=== PATIENT | female | born 1985 | race Hispanic/Latino ===

== ENCOUNTER 2018-05-02 13:36 | Emergency (ER) | payer OTHER ==
[~2018-05-02] VITALS: Ht 167.6 cm; Wt 108.0 kg
[~2018-05-02 13:36] MED LIST: CREON DR 6,000 U1 EA PO; GLYBURIDE5 MG PO; INDOMETHACIN50 MG PO; LEXAPRO10 MG PO; LISINOPRIL2.5 MG PO; METFORMIN HCL500 MG PO
[2018-05-02 14:00] LABS: BASOPHILS % 0.4 % (0.0-1.0); EOSINOPHILS # (AUTO) 0.2 (0.0-0.4); EOSINOPHILS % 1.8 % (0.0-6.0); HEMATOCRIT 40.2 % (34.2-44.1); HEMOGLOBIN 14.4 g/dL (12.0-16.0); LYMPHOCYTES # (AUTO) 2.4 (1.0-3.2); LYMPHOCYTES % 25.5 % (18.0-39.1); MEAN CORPUSCULAR HEMOGLOBIN 30.5 pg (28-32); MEAN CORPUSCULAR HGB CONC 35.8 g/dL (31-35); MEAN CORPUSCULAR VOLUME 85.2 fL (81-99); MONOCYTES # (AUTO) 0.4 (0.2-0.8); MONOCYTES % 4.2 % (4.4-11.3); NEUTROPHILS # (AUTO) 6.3 (2.1-6.9); NEUTROPHILS % 67.8 % (38.7-80.0); PLATELET COUNT 250 x10e3/uL (140-360); RED BLOOD COUNT 4.72 x10e6/uL (3.6-5.1); RED CELL DISTRIBUTION WIDTH 11.7 % (11.7-14.4)
[2018-05-02 14:17] LABS: ALANINE AMINOTRANSFERASE 16 IU/L (0-55); ALBUMIN 3.7 g/dL (3.5-5.0); ALKALINE PHOSPHATASE 66 IU/L (40-150); ANION GAP 13.7 mmol/L (8-16); BLOOD UREA NITROGEN 11 mg/dL (7-26); BUN/CREATININE RATIO 13 (6-25); CALCIUM 9.1 mg/dL (8.4-10.2); CARBON DIOXIDE 19 mmol/L (22-29); CHLORIDE 104 mmol/L (98-107); CREATININE, SERUM 0.86 mg/dL (0.57-1.11); EST GLOMERULAR FILTRATION RATE > 60 ML/MIN (60-); GLUCOSE 384 mg/dL (74-118); POTASSIUM 3.7 mmol/L (3.5-5.1); SODIUM 133 mmol/L (136-145)
[2018-05-02 15:22] LABS: CLARITY,URINE SL CLOUDY (CLEAR); COLOR,URINE YELLOW (YELLOW); KETONES,URINE TRACE (NEGATIVE); LEUKOCYTE ESTERASE ,URINE NEGATIVE (NEGATIVE); NITRITE,URINE NEGATIVE (NEGATIVE); PROTEIN,URINE DIPSTICK NEGATIVE (NEGATIVE)
[2018-05-02 15:23] LABS: BILIRUBIN,URINE NEGATIVE (NEGATIVE); PREGNANCY TEST, URINE NEGATIVE (NEGATIVE); URINE UROBILINOGEN 0.2 mg/dL (0.2 - 1)
[2018-05-02 15:32] LABS: RBC,URINE >50 /HPF (0-5)
[2018-05-02 16:37] VITALS: BP 123/87
== END 2018-05-02 16:55 | disposition home or self-care (01) ==
LOC: ER 13:36
DX: R10.30 Lower abdominal pain, unspecified (principal); R11.0 Nausea; R19.7 Diarrhea, unspecified; E11.9 Type 2 diabetes mellitus without complications; K58.9 Irritable bowel syndrome, unspecified; F32.9 Major depressive disorder, single episode, unspecified; Z87.19 Personal history of other diseases of the digestive system
CPT/HCPCS: 36415; 80053; 81001; 81025; 85025; 99284

== ENCOUNTER 2018-10-15 16:12 | Emergency (ER) | payer SELFPAY ==
[~2018-10-15] VITALS: Ht 167.6 cm; Wt 108.0 kg
--- OUTSIDE RECORDS SUMMARY | 2018-10-15 16:15 | XMS REPORT | Continuity of Care Document ---
Author Author [facility] Interface Address Unknown Phone Unavailable Problems Problem Status Onset Date Classification Date Reported Comments Source E11.9 DIABETES Active 09/11/2016 [facility] Diabetes Active Problem 05/02/2018 [facility] Medications Medication Details Route Status Patient Instructions Ordering Provider Order Date Source Amylas/Cellu/Lipas/Protea/Bile (Neptali Dr 6,000 Units Capsule) 1 Ea Cap Three Times Daily With Meals Active [facility] Escitalopram Oxalate (Lexapro) 10 Mg Tablet Daily Active [facility] Glyburide 5 Mg Tablet Daily Active [facility] Indomethacin 50 Mg Capsule As Needed Active [facility] Lisinopril 2.5 Mg Tablet Daily Active [facility] Metformin Hcl 500 Mg Tablet Twice A Day Active [facility] Allergies, Adverse Reactions, Alerts Substance Category Reaction Severity Reaction type Status Date Reported Comments Source Penicillin Allergy to Substance Active 09/15/2015 [facility] Immunizations Immunization Date Given Site Status Last Updated Comments Source Results Order Name Results Value Reference Range Date Interpretation Comments Source Automated urine sediment leukocyte count by microscopy (number/high power field) Automated urine sediment leukocyte count by microscopy (number/high power field) NONE 0 - 5 05/02/2018 [facility] Bacteria detection in urine sediment by light microscopy Bacteria detection in urine sediment by light microscopy NONE NONE 05/02/2018 [facility] Epithelial cells detection in urine sediment by light microscopy Epithelial cells detection in urine sediment by light microscopy NONE NONE 05/02/2018 [facility] Erythrocytes detection in urine sediment by light microscopy Erythrocytes detection in urine sediment by light microscopy null 0 - 5 05/02/2018 [facility] Specific gravity of Urine by Test strip Specific gravity of Urine by Test strip 1.015 1.010 - 1.025 05/02/2018 [facility] Urine clarity Urine clarity SL CLOUDY CLEAR 05/02/2018 [facility] Urine color determination Urine color determination YELLOW YELLOW 05/02/2018 [facility] Urine erythrocytes detection Urine erythrocytes detection 4+ NEGATIVE 05/02/2018 [facility] Urine glucose detection Urine glucose detection 3+ NEGATIVE 05/02/2018 [facility] Urine human chorionic gonadotropin (hCG) detection Urine human chorionic gonadotropin (hCG) detection NEGATIVE NEGATIVE 05/02/2018 [facility] Urine ketones detection by automated test strip Urine ketones detection by automated test strip TRACE NEGATIVE 05/02/2018 [facility] Urine leukocyte esterase detection by dipstick Urine leukocyte esterase detection by dipstick NEGATIVE NEGATIVE 05/02/2018 [facility] Urine nitrite detection Urine nitrite detection NEGATIVE NEGATIVE 05/02/2018 [facility] Urine pH measurement by automated test strip Urine pH measurement by automated test strip 5 5 - 7 05/02/2018 [facility] Urine protein measurement by test strip (mass/volume) Urine protein measurement by test strip (mass/volume) NEGATIVE NEGATIVE 05/02/2018 [facility] Urine total bilirubin measurement (mass/volume) Urine total bilirubin measurement (mass/volume) NEGATIVE NEGATIVE 05/02/2018 [facility] Urine urobilinogen measurement by test strip (mass/volume) Urine urobilinogen measurement by test strip (mass/volume) 0.2 0.2 - 1 05/02/2018 [facility] Automated blood basophil count (count/volume) Automated blood basophil count (count/volume) 0.0 0.0 - 0.1 05/02/2018 [facility] Automated blood basophil count as percentage of total leukocytes Automated blood basophil count as percentage of total leukocytes 0.4 0.0 - 1.0 05/02/2018 [facility] Automated blood eosinophil count Automated blood eosinophil count 0.2 0.0 - 0.4 05/02/2018 [facility] Automated blood eosinophil count as percentage of total leukocytes Automated blood eosinophil count as percentage of total leukocytes 1.8 0.0 - 6.0 05/02/2018 [facility] Automated blood hematocrit (volume fraction) Automated blood hematocrit (volume fraction) 40.2 34.2 - 44.1 05/02/2018 [facility] Automated blood lymphocyte count as percentage ot total leukocytes Automated blood lymphocyte count as percentage ot total leukocytes 25.5 18.0 - 39.1 05/02/2018 [facility] Automated blood monocyte count as percentage of total leukocytes Automated blood monocyte count as percentage of total leukocytes 4.2 4.4 - 11.3 05/02/2018 [facility] Automated blood neutrophil count Automated blood neutrophil count 6.3 2.1 - 6.9 05/02/2018 [facility] Automated blood platelet count (count/volume) Automated blood platelet count (count/volume) 250 140 - 360 05/02/2018 [facility] Automated blood segmented neutrophil count as percentage of total leukocytes Automated blood segmented neutrophil count as percentage of total leukocytes 67.8 38.7 - 80.0 05/02/2018 [facility] Automated erythrocyte mean corpuscular hemoglobin (mass per erythrocyte) Automated erythrocyte mean corpuscular hemoglobin (mass per erythrocyte) 30.5 28 - 32 05/02/2018 [facility] Automated erythrocyte mean corpuscular hemoglobin concentration measurement (mass/volume) Automated erythrocyte mean corpuscular hemoglobin concentration measurement (mass/volume) 35.8 31 - 35 05/02/2018 [facility] Automated erythrocyte mean corpuscular volume Automated erythrocyte mean corpuscular volume 85.2 81 - 99 05/02/2018 [facility] Blood erythrocytes automated count (number/volume) Blood erythrocytes automated count (number/volume) 4.72 3.6 - 5.1 05/02/2018 [facility] Blood hemoglobin measurement (moles/volume) Blood hemoglobin measurement (moles/volume) 14.4 12.0 - 16.0 05/02/2018 [facility] Blood leukocytes automated count (number/volume) Blood leukocytes automated count (number/volume) 9.34 4.8 - 10.8 05/02/2018 [facility] Blood lymphocytes count (number/volume) Blood lymphocytes count (number/volume) 2.4 1.0 - 3.2 05/02/2018 [facility] Blood monocytes automated count (number/volume) Blood monocytes automated count (number/volume) 0.4 0.2 - 0.8 05/02/2018 [facility] Estimated glomerular filtration rate (GFR) determination Estimated glomerular filtration rate (GFR) determination null 60 05/02/2018 [facility] Glucose measurement Glucose measurement 384 74 - 118 05/02/2018 [facility] Plasma globulin measurement (mass/volume) Plasma globulin measurement (mass/volume) 3.7 2.3 - 3.5 05/02/2018 [facility] Serum or plasma alanine aminotransferase measurement (enzymatic activity/volume) Serum or plasma alanine aminotransferase measurement (enzymatic activity/volume) 16 0 - 55 05/02/2018 [facility] Serum or plasma albumin measurement (mass/volume) Serum or plasma albumin measurement (mass/volume) 3.7 3.5 - 5.0 05/02/2018 [facility] Serum or plasma albumin/globulin mass ratio Serum or plasma albumin/globulin mass ratio 1.0 0.8 - 2.0 05/02/2018 [facility] Serum or plasma alkaline phosphatase measurement (enzymatic activity/volume) Serum or plasma alkaline phosphatase measurement (enzymatic activity/volume) 66 40 - 150 05/02/2018 [facility] Serum or plasma anion gap Serum or plasma anion gap 13.7 8 - 16 05/02/2018 [facility] Serum or plasma calcium measurement (mass/volume) Serum or plasma calcium measurement (mass/volume) 9.1 8.4 - 10.2 05/02/2018 [facility] Serum or plasma carbon dioxide, total measurement (moles/volume) Serum or plasma carbon dioxide, total measurement (moles/volume) 19 22 - 29 05/02/2018 [facility] Serum or plasma chloride measurement (moles/volume) Serum or plasma chloride measurement (moles/volume) 104 98 - 107 05/02/2018 [facility] Serum or plasma creatinine measurement (mass/volume) Serum or plasma creatinine measurement (mass/volume) 0.86 0.57 - 1.11 05/02/2018 [facility] Serum or plasma potassium measurement (moles/volume) Serum or plasma potassium measurement (moles/volume) 3.7 3.5 - 5.1 05/02/2018 [facility] Serum or plasma protein measurement (mass/volume) Serum or plasma protein measurement (mass/volume) 7.4 6.5 - 8.1 05/02/2018 [facility] Serum or plasma sodium measurement (moles/volume) Serum or plasma sodium measurement (moles/volume) 133 136 - 145 05/02/2018 [facility] Serum or plasma total bilirubin measurement (mass/volume) Serum or plasma total bilirubin measurement (mass/volume) 0.8 0.2 - 1.2 05/02/2018 [facility] Serum or plasma urea nitrogen measurement (mass/volume) Serum or plasma urea nitrogen measurement (mass/volume) 11 7 - 26 05/02/2018 [facility] Serum or plasma urea nitrogen/creatinine mass ratio Serum or plasma urea nitrogen/creatinine mass ratio 13 6 - 25 05/02/2018 [facility] Red Cell Distribution Width 11.7 11.7 - 14.4 05/02/2018 [facility] IM GRANULOCYTES % 0.3 0.0 - 1.0 05/02/2018 [facility] Absolute Immature Granulocyte (auto 0.03 0 - 0.1 05/02/2018 [facility] Aspartate Amino Transf (AST/SGOT) 13 5 - 34 05/02/2018 [facility] Vital Signs Vital Sign Value Date Comments Source Encounters Location Location Details Encounter Type Encounter Number Reason For Visit Attending Provider ADM Date DC Date Status Source [facility] Outpatient [id number] Zaid Eubanks 11/15/2016 11/16/2016 [facility] Departed Emergency Room [id number] NELSON HA MD 05/02/2018 05/02/2018 [facility] Procedures Procedure Code Date Perfomer Comments Source
[2018-10-15] MEDS ORDERED: SODIUM CHLORIDE 0.9% 1000ML 1,000 ML IV STA (16:17)
[2018-10-15 16:55] LABS: BASOPHILS % 0.3 % (0.0-1.0); EOSINOPHILS # (AUTO) 0.2 (0.0-0.4); EOSINOPHILS % 1.9 % (0.0-6.0); HEMATOCRIT 42.3 % (34.2-44.1); HEMOGLOBIN 14.4 g/dL (12.0-16.0); LYMPHOCYTES % 25.1 % (18.0-39.1); MEAN CORPUSCULAR HEMOGLOBIN 30.2 pg (28-32); MEAN CORPUSCULAR VOLUME 88.7 fL (81-99); MONOCYTES # (AUTO) 0.4 (0.2-0.8); MONOCYTES % 5.2 % (4.4-11.3); NEUTROPHILS # (AUTO) 5.3 (2.1-6.9); NEUTROPHILS % 67.1 % (38.7-80.0); PLATELET COUNT 262 x10e3/uL (140-360); RED BLOOD COUNT 4.77 x10e6/uL (3.6-5.1); RED CELL DISTRIBUTION WIDTH 11.9 % (11.7-14.4)
[2018-10-15 17:15] LABS: ALANINE AMINOTRANSFERASE 19 IU/L (0-55); ALBUMIN 3.6 g/dL (3.5-5.0); ALKALINE PHOSPHATASE 81 IU/L (40-150); ANION GAP 14.7 mmol/L (8-16); BLOOD UREA NITROGEN 13 mg/dL (7-26); BUN/CREATININE RATIO 15 (6-25); CALCIUM 9.4 mg/dL (8.4-10.2); CARBON DIOXIDE 20 mmol/L (22-29); CHLORIDE 101 mmol/L (98-107); CREATININE, SERUM 0.84 mg/dL (0.57-1.11); EST GLOMERULAR FILTRATION RATE > 60 ML/MIN (60-); GLUCOSE 378 mg/dL (74-118); POTASSIUM 3.7 mmol/L (3.5-5.1); SODIUM 132 mmol/L (136-145)
[2018-10-15 17:24] LABS: CLARITY,URINE SL CLOUDY (CLEAR); COLOR,URINE YELLOW (YELLOW)
[2018-10-15 17:25] LABS: BILIRUBIN,URINE NEGATIVE (NEGATIVE); KETONES,URINE NEGATIVE (NEGATIVE); LEUKOCYTE ESTERASE ,URINE NEGATIVE (NEGATIVE); NITRITE,URINE NEGATIVE (NEGATIVE); PROTEIN,URINE DIPSTICK NEGATIVE (NEGATIVE); URINE UROBILINOGEN 0.2 mg/dL (0.2 - 1)
[2018-10-15 17:36] LABS: BACTERIA,URINE FEW /HPF; EPITHELIAL CELLS,URINE MODERATE /LPF; RBC,URINE 0-5 /HPF (0-5); TRANSITIONAL EPI CELLS,URINE FEW
[2018-10-15] MEDS ORDERED: INSULIN REGULAR, HUMAN 100 UNIT/1 ML 3ML VIAL IV ONE (18:00)
--- NOTE | 2018-10-15 18:32 | Diagnostic Imaging Report ---
EXAM: Transabdominal and Transvaginal Pelvic Ultrasound INDICATION: ^vag bleeding ^[id number] ^[id number] COMPARISON: None TECHNIQUE: Grayscale transverse and sagittal transvaginal images were obtained of the pelvis. CLINICAL HISTORY: 33 year old A0; last menstrual period: Unknown. FINDINGS: Uterus Orientation: Normal Size: 4.9 x 2.6 x 2.5 cm, Normal Mass: None. Cervix: Trace endocervical fluid. Endometrium: Thickness: 0.1 cm, Normal. Appearance: Homogeneous echotexture without focal thickening. There are several small cystic lesions, submucosal and adjacent to the endometrium in the lower uterine segment. Right ovary: Size: 1.1 x 1.2 x 0.7 cm Mass/Cyst: None Left ovary: Not visualized. Adnexa: Normal Cul-de-sac: No free fluid IMPRESSION: Endometrial or submucosal cystic changes of the lower uterine segment. Recommend follow-up in 6-8 weeks to reevaluate. Signed by: Dr. Dayday Prasad MD on 10/15/2018 6:29 PM
--- NOTE | 2018-10-15 18:56 | NUR ---
VERBAL REPORT GIVEN TO PROMISE MARMOLEJO.
[2018-10-15 19:21] VITALS: BP 110/76
== END 2018-10-15 19:26 | disposition home or self-care (01) ==
LOC: ER 16:12
DX: N93.8 Other specified abnormal uterine and vaginal bleeding (principal); E11.40 Type 2 diabetes mellitus with diabetic neuropathy, unspecified; F32.9 Major depressive disorder, single episode, unspecified
CPT/HCPCS: 36415; 76830; 80053; 81001; 82948; 84702; 85025; 86850; 86900; 99284; J7030